=== PATIENT | female | born 1965 | race Hispanic/Latino ===

== ENCOUNTER 2017-05-23 09:31 | Outpatient (CLI) | payer OTHER ==
--- NOTE | 2017-05-24 09:00 | Mammography Report ---
BILATERAL DIGITAL SCREENING MAMMOGRAM with CAD: 05/23/17 09:31:00 CLINICAL: Routine screening. COMPARISON:09/18/14 FINDINGS: The breasts are mostly fatty with bilateral upper outer scattered fibroglandular densities. A partially circumscribed roundish outer asymmetry in the right breast on the CC view is unchanged compared to the prior exam. No mass, architectural distortion or suspicious calcifications. IMPRESSION: No mammographic evidence of malignancy. BI-RADS CATEGORY: 2 -- Benign RECOMMENDATION: Routine mammographic screening in one year. COMMENT: Patient follow-up letters are generated by our [employer] application.
== END 2017-05-23 09:32 | disposition home or self-care (01) ==
LOC: SPVWC 09:31
PROVIDERS: ATTEND Family Medicine
DX: Z12.31 Encounter for screening mammogram for malignant neoplasm of breast (principal)
CPT/HCPCS: 77067